=== PATIENT | male | born 2000 | race Caucasian/White ===

== ENCOUNTER 2022-04-12 11:13 | Emergency (ER) | payer SELFPAY | END 2022-04-12 13:31 | disposition home or self-care (01) | LOC: JD.ED 11:13 | DX: R04.0 Epistaxis (principal) | CPT/HCPCS: 99283 ==

== ENCOUNTER 2023-02-24 20:01 | Emergency (ER) | payer OTHER ==
[2023-02-24] MEDS ORDERED: Dextrose 5%-Lactated Ringers 1,000 ML IV SCH (20:45)
== END 2023-02-24 22:20 | disposition home or self-care (01) ==
LOC: JD.ED 20:01
DX: I95.1 Orthostatic hypotension (principal); Z79.899 Other long term (current) drug therapy; Z88.5 Allergy status to narcotic agent
CPT/HCPCS: 93005; 96360; 99284; J7121